=== PATIENT | male | born 1955 | race Caucasian/White ===

== ENCOUNTER 2021-07-17 06:55 | Inpatient (IN) | payer OTHER ==
[~2021-07-17] VITALS: Ht 172.7 cm; Wt 81.6 kg
[2021-07-17 07:54] LABS: HEMOGLOBIN 15.6 gm/dl (14.0-17.5); RED BLOOD COUNT 4.79 M/UL (4.20-5.50); WHITE BLOOD COUNT 5.8 K/UL (4.5-11.0)
[2021-07-17 08:04] LABS: BUN/CREATININE RATIO 15 (0-10)
[2021-07-17] MEDS ORDERED: GABAPENTIN300 MG PO (11:45)
[2021-07-17] MEDS ORDERED: HYDROXYZINE HCL50 MG PO (11:46)
[2021-07-17] MEDS ORDERED: LIORESAL TAB 1010 MG PO (11:46)
[2021-07-17] MEDS ORDERED: MELATONIN3 M3 PO (11:46)
[2021-07-17] MEDS ORDERED: PROSCAR 5 MG TAB5 MG PO (11:46)
[2021-07-17] MEDS ORDERED: PROTONIX 40 MG40 M1 PO (11:47)
[2021-07-17] MEDS ORDERED: SYNTHROID25 MCG PO (11:47)
[2021-07-17] MEDS ORDERED: CYMBALTA 30 MG30 MG PO (11:47)
[2021-07-17] MEDS ORDERED: TYLENOL325 MG PO (11:48)
[2021-07-17] MEDS ORDERED: ASPIRIN EC81 MG PO (11:48)
[2021-07-17] MEDS ORDERED: MELOXICAM15 MG PO (11:48)
[2021-07-17] MEDS ORDERED: VARDENAFIL HCL20 MG PO (11:49)
[2021-07-18 05:14] LABS: HEMOGLOBIN 16.3 gm/dl (14.0-17.5); RED BLOOD COUNT 5.03 M/UL (4.20-5.50); WHITE BLOOD COUNT 5.4 K/UL (4.5-11.0)
[2021-07-18 05:47] LABS: BUN/CREATININE RATIO 26 (0-10)
--- NOTE | 2021-07-18 12:54 | NUR ---
07/18/21 1250 REPORT CALLED TO [facility] TO BE TRANSFERRED TO ROOM 4102
[2021-07-18] MEDS ORDERED: DECADRON6 MG PO (14:51)
[2021-07-19 07:00] LABS: HEMOGLOBIN 15.3 gm/dl (14.0-17.5); RED BLOOD COUNT 4.76 M/UL (4.20-5.50)
[2021-07-19 07:04] LABS: WHITE BLOOD COUNT 7.4 K/UL (4.5-11.0)
[2021-07-19 07:26] LABS: BUN/CREATININE RATIO 21 (0-10)
--- NOTE | 2021-07-19 09:38 | NUR ---
PATIENT'S OXYGEN OBTAINED ON ROOM AIR MEASURED 85%. PATIENT PLACED BACK ON 3 LITERS OF OXYGEN VIA NASAL CANNULA AND OXYGEN INCREASED TO 92%.
[2021-07-20 05:11] LABS: HEMOGLOBIN 13.9 gm/dl (14.0-17.5); RED BLOOD COUNT 4.38 M/UL (4.20-5.50); WHITE BLOOD COUNT 6.4 K/UL (4.5-11.0)
[2021-07-20 05:56] LABS: BUN/CREATININE RATIO 21 (0-10)
--- NOTE | 2021-07-20 06:25 | NUR ---
PATIENT SLEPT MOST OF THE EVENING. NO COMPLAINTS OF PAIN OR DYSPNEA. CURRENTLY ON 2L NC WITH 02 SAT 92% OR ABOVE THROUGHOUT THE NIGHT.
--- NOTE | 2021-07-20 11:19 | NUR ---
ATTEMPTED TO CALL [facility] NUMBER LEFT IN THIER NOTE TO GET AN UPDATE REGARDING THE PATIENT'S HOME O2. NO ANSWER AT ANY NUMBER, WILL CALL BACK.
--- NOTE | 2021-07-20 16:51 | NUR ---
PATIENT SAYS HE CAN GET OXYGEN FOR HOME USE FROM FAMILY. 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 NOT SURE IF THE PATIENT CAN BE DISCHARGED PRIOR TO THE O[facility] SET [facility] WITH [facility]. PATIENT AGREES HE WANTS TO STAY AND I WILL CALL IN THE MORNING AND SPEAK WITH A OTA REGARDING WHETHER OR NOT HE CAN STILL GET HIS O2 [facility]OUGH [facility] IF HE IS DISCHARGED FROM HERE.
[2021-07-21 05:23] LABS: HEMOGLOBIN 14.2 gm/dl (14.0-17.5); RED BLOOD COUNT 4.55 M/UL (4.20-5.50); WHITE BLOOD COUNT 5.3 K/UL (4.5-11.0)
[2021-07-21 05:50] LABS: BUN/CREATININE RATIO 25 (0-10)
--- NOTE | 2021-07-21 09:36 | NUR ---
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
--- NOTE | 2021-07-21 09:54 | NUR ---
SPOKE WITH CASE MANAGMENT, O2 SHOULD BE DELIVERED SOME TIME THIS EVENING, THEN PATIENT CAN BE DISCHARGED.
== END 2021-07-21 16:13 | disposition home or self-care (01) | DRG 177 ==
LOC: ER1 06:55 → CDU 09:22 → 3 EAST 19:49 → MED SURG 4 07-18 14:19
PROVIDERS: Emergency Medicine; Nurse Practitioner; Physician Assistant Medical; ADMIT Internal Medicine
PROC: 8E0ZXY6 Isolation (ICD-10-PCS; principal; 2021-07-20)
PROC: XW033E5 Introduction of Remdesivir Anti-infective into Peripheral Vein, Percutaneous Approach, New Technology Group 5 (ICD-10-PCS; 2021-07-20)
PROC: 3E0333Z Introduction of Anti-inflammatory into Peripheral Vein, Percutaneous Approach (ICD-10-PCS; 2021-07-20)
DX: U07.1 COVID-19 (principal); J12.82 Pneumonia due to coronavirus disease 2019; J96.01 Acute respiratory failure with hypoxia; J44.0 Chronic obstructive pulmonary disease with (acute) lower respiratory infection; J98.11 Atelectasis; J44.1 Chronic obstructive pulmonary disease with (acute) exacerbation; M54.9 Dorsalgia, unspecified; F17.200 Nicotine dependence, unspecified, uncomplicated; E78.5 Hyperlipidemia, unspecified; Z98.890 Other specified postprocedural states; Z83.6 Family history of other diseases of the respiratory system; Z79.82 Long term (current) use of aspirin; Z79.899 Other long term (current) drug therapy; G89.29 Other chronic pain
CPT/HCPCS: 0240U; 36415; 36600; 71045; 80048; 80053; 81001; 82550; 82553; 82803; 83605; 83735; 83874; 83880; 84484; 85025; 85027; 86140; 87040; 94640; 94664; 94760; 99285; J0696; J1100; J1650; J7030; Q9967

== ENCOUNTER → 2022-01-14 | Outpatient (CLI) | payer OTHER ==
[~2022-01-14] MED LIST: ASPIRIN EC81 MG PO; CYMBALTA 30 MG30 MG PO; DECADRON6 MG PO; GABAPENTIN300 MG PO; HYDROXYZINE HCL50 MG PO; LIORESAL TAB 1010 MG PO; MELATONIN3 M3 PO; MELOXICAM15 MG PO; PROSCAR 5 MG TAB5 MG PO; PROTONIX 40 MG40 M1 PO; SYNTHROID25 MCG PO; TYLENOL325 MG PO; VARDENAFIL HCL20 MG PO
== END ==
LOC: KOH-I 13:00 → CT 13:10
DX: R91.1 Solitary pulmonary nodule (principal); Z86.16 Personal history of COVID-19; Z87.891 Personal history of nicotine dependence; J18.9 Pneumonia, unspecified organism
CPT/HCPCS: 71250

== ENCOUNTER → 2022-01-29 | Outpatient (CLI) | payer OTHER | LOC: HEART 5 14:58 | DX: R06.02 Shortness of breath (principal); R94.2 Abnormal results of pulmonary function studies | CPT/HCPCS: 94060; 94729 ==

== ENCOUNTER → 2022-02-04 | Outpatient (CLI) | payer OTHER | LOC: ECHO 10:45 | DX: R06.02 Shortness of breath (principal); I08.3 Combined rheumatic disorders of mitral, aortic and tricuspid valves | CPT/HCPCS: ECHO; 93306 ==